=== PATIENT | female | born 1985 | race Caucasian/White ===

== ENCOUNTER 2017-08-22 22:06 | Inpatient (IN) | payer OTHER ==
[~2017-08-22] VITALS: Ht 162.6 cm; Wt 76.7 kg
[2017-08-22 22:16] VITALS: BP 129/80
[2017-08-22 23:08] LABS: BASOPHIL (%) 0.1 % (0-1); EOSINOPHIL (%) 0.4 % (0-5); HEMATOCRIT 35.9 % (36.0-46.0); HEMOGLOBIN 12.2 G/DL (11.9-15.5); IMMATURE GRANULOCYTE (%) 0.8 % (0.0-0.7); LYMPHOCYTE (%) 20.4 % (15-42); LYMPHOCYTE COUNT 1.5 K/uL (1.0-2.8); MCH 28.2 PG (29.0-34.0); MCV 82.9 FL (83-99); MONOCYTE (%) 9.3 % (3-12); MONOCYTE COUNT 0.7 K/uL (0-0.8); PLATELET COUNT 199 K/uL (156-360); RBC DIS.WIDTH-CV 13.4 % (11.8-14.6); RBC DIS.WIDTH-SD 40.2 % (39-53); RED BLOOD COUNT 4.33 M/uL (3.80-5.20); WHITE BLOOD COUNT 7.2 K/uL (4.1-10.2)
[2017-08-23] VITALS (35 sets, daily range): BP systolic 61–143; BP diastolic 29–78
[2017-08-23] MEDS ORDERED: PRENATAL TABLE1 EACH PO (01:50)
[2017-08-24 22:36] VITALS: BP 101/60
[2017-08-25 07:25] VITALS: BP 114/69
[2017-08-25] MEDS ORDERED: IBUPROFEN800 MG PO (07:54)
[2017-08-25] MEDS ORDERED: MOTRIN800 MG PO (08:26)
== END 2017-08-25 11:39 | disposition home or self-care (01) | DRG 775 ==
LOC: LDRP-OP 22:06 → 2WEST 22:07 → LDRP-OP 09-22 09:44
PROVIDERS: Midwife
PROC: 10907ZC Drainage of Amniotic Fluid, Therapeutic from Products of Conception, Via Natural or Artificial Opening (ICD-10-PCS; principal; 2017-08-22)
PROC: 00HU33Z Insertion of Infusion Device into Spinal Canal, Percutaneous Approach (ICD-10-PCS; 2017-08-23)
PROC: 0KQM0ZZ Repair Perineum Muscle, Open Approach (ICD-10-PCS; 2017-08-23)
PROC: 10E0XZZ Delivery of Products of Conception, External Approach (ICD-10-PCS; 2017-08-23)
PROC: 3E0R3BZ Introduction of Anesthetic Agent into Spinal Canal, Percutaneous Approach (ICD-10-PCS; 2017-08-23)
DX: O70.1 Second degree perineal laceration during delivery (principal); Z37.0 Single live birth; Z3A.39 39 weeks gestation of pregnancy; O99.824 Streptococcus B carrier state complicating childbirth
CPT/HCPCS: 85025; C1755; G0378; J0595; J2540; J2795; J3010; J7120